=== PATIENT | female | born 1980 | race Caucasian/White ===

== ENCOUNTER 2016-07-24 07:01 | Emergency (ER) | payer MEDICARE, MEDICAID ==
[~2016-07-24] VITALS: Ht 162.6 cm; Wt 81.6 kg
[~2016-07-24 07:01] MED LIST: AGM875T PO; ALPR.5T PO; ALPR1T PO; BSP5T PO; CITA40TA19 PO; DEXL60CA PO; DOXE10CA PO; DOXE25CA2 PO; FAMO40TA6 PO; HYDR-2889 PO; HYDR1CAP2 PO; LNS30CCR; NAPR-243 PO; NAPR220T76 PO; OMEP20CA12 PO; ONDA-42 PO; ONDA4TAB11 PO; ONDA8TAB6 PO; ORPH100T PO; PREN1TAB49 PO; PROM12.59 PO; PROM25SU10 RC; RISP0.5T2 PO; RISP1TAB2 PO; RNT150T PO; SCR1T1 PO; TRAM50TA2 PO; TRM50T PO; [UNRECOGNIZED DRUG - CODE]
[2016-07-24] MEDS: ONDANSETRON 4 MG/2 ML (SDV) Z0FRAN IVP ONE ×2 (07:50→10:12)
[2016-07-24] MEDS: NS IV 1000 ML 1,000 ML IV SCH ×2 (07:55→10:12)
[2016-07-24] MEDS ORDERED: ESOM40CA52 PO (08:19)
[2016-07-24] MEDS ORDERED: RISP2TAB3 PO (08:19)
[2016-07-24] MEDS ORDERED: TRAZ150T72 PO (08:19)
[2016-07-24] MEDS ORDERED: DESV100T PO (08:19)
[2016-07-24 08:25] LABS: BASOPHILS % (AUTO) 0 % (0-10); EOSINOPHILS % (AUTO) 0 % (0-10); LYMPHOCYTES % (AUTO) 9 % (12-44); MEAN CORPUSCULAR HEMOGLOBIN 31 PG (25-34); MEAN CORPUSCULAR HGB CONC 35 G/DL (32-36); MEAN CORPUSCULAR VOLUME 88 FL (80-99); MEAN PLATELET VOLUME 10.1 FL (7.4-10.4); MONOCYTES # (AUTO) 0.2 X 10^3 (0.0-1.0); MONOCYTES % (AUTO) 2 % (0-12); NEUTROPHILS # (AUTO) 9.5 X 10^3 (1.8-7.8); NEUTROPHILS % (AUTO) 89 % (42-75); PLATELET COUNT 344 10^3/uL (130-400); RED CELL DISTRIBUTION WIDTH 12.7 % (10.0-14.5); WHITE BLOOD COUNT 10.8 10^3/uL (4.3-11.0)
[2016-07-24 08:42] LABS: ALANINE AMINOTRANSFERASE 17 U/L (0-55); ALBUMIN 4.6 G/DL (3.2-4.5); ANION GAP 14 MMOL/L (5-14); ASPARTATE AMINO TRANSFERASE 16 U/L (5-34); BILIRUBIN,TOTAL 0.8 MG/DL (0.1-1.0); BLOOD UREA NITROGEN 14 MG/DL (7-18); BUN/CREATININE RATIO 17; CARBON DIOXIDE 22 MMOL/L (21-32); CHLORIDE 105 MMOL/L (98-107); CREATININE SERUM 0.81 MG/DL (0.60-1.30); GFR ESTIMATED > 60; GLUCOSE 137 MG/DL (70-105); POTASSIUM 3.7 MMOL/L (3.6-5.0); SODIUM 141 MMOL/L (135-145)
[2016-07-24 09:22] LABS: BAND NEUTROPHILS 0 %; BASOPHILS % (MANUAL) 0 %; EOSINOPHILS % (MANUAL) 0 %; LYMPHOCYTES % (MANUAL) 12 %; NEUTROPHILS % (MANUAL) 88 %
--- NOTE | 2016-07-24 09:29 | ED GI ---
General Chief Complaint: Abdominal/GI Problems Stated Complaint: NAUSEA AND VOMITING Nursing Triage Note: Pt c/o abd pain, n/v starting last night after eating a cinnamon roll and proceeded through the night, unable to hold things down. reports having chronic lower back pain that has worsened over the last few days. pt dry heaving multiple times since arrival. reports having constipation for greater than one week, which is his "normal" Sepsis Screen: No Definite Risk Source of Information: Patient, Family Exam Limitations: No Limitations History of Present Illness Time Seen By Provider: 09:24 Initial Comments The patient is a 36-year-old white female who presents with complaints of nausea and vomiting. This apparently began last evening after eating a cinnamon roll. She reports a burning sensation in her epigastrium. There has been no diarrhea. She has felt as if she were chilling but there is no known fever. No one else at home is ill. 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 There has been no blood in the vomitus. Timing/Duration: 12-24 Hours Severity/Quality: Moderate Location: Epigastric Radiation: No Radiation Activities at Onset: None Modifying Factors: Improves With Eating Associated Symptoms: Denies Symptoms Allergies and Home Medications Allergies Coded Allergies: No Known Drug Allergies (Unverified , 11/20/09) Home Medications Desvenlafaxine Succinate 100 Mg Tab.er.24h, 100 MG PO DAILY, #30 (Reported) Esomeprazole Magnesium 40 Mg Capsule.dr, 40 MG PO DAILY, #90 (Reported) Risperidone 2 Mg Tablet, 2 MG PO HS, #30 (Reported) Trazodone HCl 150 Mg Tablet, 150 MG PO HS, #30 (Reported) Review of Systems Constitutional: see HPI EENTM: No Symptoms Reported Respiratory: No Symptoms Reported Cardiovascular: No Symptoms Reported Gastrointestinal: Abdominal Pain, Nausea, Vomiting Genitourinary: No Symptoms Reported Musculoskeletal: no symptoms reported Skin: no symptoms reported Psychiatric/Neurological: Other Endocrine: No Symptoms Reported Hematologic/Lymphatic: No Symptoms Reported Past Fzahrvd-Vxlpti-Ptmgta Hx Patient Social History Alcohol Use: Denies Use Recreational Drug Use: Yes Drug of Choice: marijuana Smoking Status: Current Everyday Smoker 2nd Hand Smoke Exposure: Yes Recent Foreign Travel: No Contact w/Someone Who Travel: No Recent Infectious Disease Expo: No Recent Hopitalizations: No Immunizations Up To Date Date of Influenza Vaccine: Dec 12, 2010 Seasonal Allergies Seasonal Allergies: No Surgeries HX Surgeries: Yes (TENDONS STRETCHED OUT. ) Surgeries: Gallbladder Respiratory Hx Respiratory Disorders: No Cardiovascular Hx Cardiac Disorders: No Neurological Hx Neurological Disorders: Yes Neurological Disorders: Stroke Reproductive System : No Hx Reproductive Disorders: No Genitourinary Hx Genitourinary Disorders: No Gastrointestinal Hx Gastrointestinal Disorders: No Musculoskeletal Hx Musculoskeletal Disorders: Yes (RIGHT SIDE WEAKNESS.) Musculoskeletal Disorders: Contracture Endocrine Hx Endocrine Disorders: No HEENT HX ENT Disorders: Yes (HAS NO TEETH--DENTURES AT HOME.) Psychosocial Hx Psychiatric Problems: Yes (Bipolar ) Behavioral Health Disorders: Bipolar Blood Transfusions Hx Blood Disorders: No Physical Exam Vital Signs VS - Last 72 Hours, by Label 07/24/16 07:41 Temp 96.7 Pulse 64 Resp 20 B/P (MAP) 104/76 O2 Delivery Room Air Capillary Refill : Less Than 3 Seconds General Appearance: other (anxious) HEENT: normal ENT inspection Neck: full range of motion Respiratory: chest non-tender, lungs clear, normal breath sounds, no respiratory distress, no accessory muscle use Cardiovascular: normal peripheral pulses, regular rate, rhythm, no edema, no gallop, no JVD, no murmur Gastrointestinal: abnormal bowel sounds (decreased) Extremities: other (there is atrophy of the right hand and contracturing at the wrist and elbow) Back: no CVA tenderness Neurologic/Psychiatric: other (appears to be a degree of facial nerve paralysis on the right) Skin: normal color, warm/dry Lymphatic: no adenopathy Progress/Results/Core Measures Results/Orders Lab Results Laboratory Tests Test 07/24/16 08:17 07/24/16 10:50 Range/Units White Blood Count 10.8 4.3-11.0 10^3/uL Red Blood Count 5.10 4.35-5.85 10^6/uL Hemoglobin 15.6 11.5-16.0 G/DL Hematocrit 45 35-52 % Mean Corpuscular Volume 88 80-99 FL Mean Corpuscular Hemoglobin 31 25-34 PG Mean Corpuscular Hemoglobin Concent 35 32-36 G/DL Red Cell Distribution Width 12.7 10.0-14.5 % Platelet Count 344 130-400 10^3/uL Mean Platelet Volume 10.1 7.4-10.4 FL Neutrophils (%) (Auto) 89 H 42-75 % Lymphocytes (%) (Auto) 9 L 12-44 % Monocytes (%) (Auto) 2 0-12 % Eosinophils (%) (Auto) 0 0-10 % Basophils (%) (Auto) 0 0-10 % Neutrophils # (Auto) 9.5 H 1.8-7.8 X 10^3 Lymphocytes # (Auto) 1.0 1.0-4.0 X 10^3 Monocytes # (Auto) 0.2 0.0-1.0 X 10^3 Eosinophils # (Auto) 0.0 0.0-0.3 10^3/uL Basophils # (Auto) 0.0 0.0-0.1 10^3/uL Neutrophils % (Manual) 88 % Lymphocytes % (Manual) 12 % Monocytes % (Manual) 0 % Eosinophils % (Manual) 0 % Basophils % (Manual) 0 % Band Neutrophils 0 % Blood Morphology Comment NORMAL Sodium Level 141 135-145 MMOL/L Potassium Level 3.7 3.6-5.0 MMOL/L Chloride Level 105 98-107 MMOL/L Carbon Dioxide Level 22 21-32 MMOL/L Anion Gap 14 5-14 MMOL/L Blood Urea Nitrogen 14 7-18 MG/DL Creatinine 0.81 0.60-1.30 MG/DL Estimat Glomerular Filtration Rate > 60 BUN/Creatinine Ratio 17 Glucose Level 137 H 70-105 MG/DL Calcium Level 10.0 8.5-10.1 MG/DL Total Bilirubin 0.8 0.1-1.0 MG/DL Aspartate Amino Transf (AST/SGOT) 16 5-34 U/L Alanine Aminotransferase (ALT/SGPT) 17 0-55 U/L Alkaline Phosphatase 87 40-136 U/L Total Protein 8.0 6.4-8.2 G/DL Albumin 4.6 H 3.2-4.5 G/DL Urine Color YELLOW Urine Clarity CLEAR Urine pH 6 5-9 Urine Specific [place] 1.025 H 1.016-1.022 Urine Protein 2+ H NEGATIVE Urine Glucose (UA) NEGATIVE NEGATIVE Urine Ketones 2+ H NEGATIVE Urine Nitrite NEGATIVE NEGATIVE Urine Bilirubin 1+ H NEGATIVE Urine Urobilinogen 4 H NORMAL MG/DL Urine Leukocyte Esterase 1+ H NEGATIVE Urine RBC (Auto) 3+ H NEGATIVE Urine RBC 0-2 /HPF Urine WBC 0-2 /HPF Urine Squamous Epithelial Cells 5-10 /HPF Urine Crystals NONE /LPF Urine Bacteria MODERATE H /HPF Urine Casts NONE /LPF Urine Mucus NEGATIVE /LPF Urine Culture Indicated NO Urine Test NEGATIVE NEGATIVE My Orders Orders - GABRIEL SYLVESTER MD Cbc With Automated Diff (07/24/16 07:12) Comprehensive Metabolic Panel (07/24/16 07:12) Hcg,Qualitative Urine (07/24/16 07:12) Ua Culture If Indicated (07/24/16 07:12) Ondansetron Injection (Zofran Injectio (07/24/16 07:45) Ns Iv 1000 Ml (Sodium Chloride 0.9%) (07/24/16 07:45) Manual Differential (07/24/16 08:17) Ns Iv 1000 Ml (Sodium Chloride 0.9%) (07/24/16 09:30) Ondansetron Injection (Zofran Injectio (07/24/16 10:15) Ondansetron Injection (Zofran Injectio (07/24/16 10:03) Ct Abdomen/Pelvis Wo (07/24/16 10:10) Medications Given in ED Current Medications Medications Dose Ordered Sig/[place] Route Start Time Stop Time Status Last Admin Dose Admin Ondansetron HCl 8 mg ONCE ONCE IVP 07/24/16 07:45 07/24/16 07:46 DC 07/24/16 07:50 8 MG Ondansetron HCl 8 mg ONCE ONCE IVP 07/24/16 10:15 07/24/16 10:16 DC 07/24/16 10:12 8 MG Vital Signs/I&O Vital Sign - Last 12Hours 07/24/16 07:41 Temp 96.7 Pulse 64 Resp 20 B/P (MAP) 104/76 O2 Delivery Room Air Blood Pressure Mean: 85 Departure Communication Progress Notes CT scan shows a hiatal hernia as noted before. No other pathology is identified in the abdomen. Impression Impression: Primary Impression: nausea and vomiting Disposition: 01 HOME, SELF-CARE Condition: Stable/Unchanged Departure-Patient Inst. Decision time for Depature: 11:35 Referrals: NO,LOCAL PHYSICIAN (PCP) Primary Care Physician Add. Discharge Instructions: All discharge instructions reviewed with patient and/or family. Voiced understanding. Take Zofran as needed to control nausea and vomiting Use 7-Up or Gatorade in small amounts frequently to manage hydration while you are ill. This may last 24 hours. Do not attempt to eat until you have gone at least 12 hours without vomiting. Scripts Ondansetron (Zofran Odt) 8 Mg Tab.rapdis 8 MG PO EVERY 4 HOURS, #20 TAB Prov: GABRIEL SYLVESTER MD 07/24/16 GABRIEL SYLVESTER MD Jul 24, 2016 09:29
[2016-07-24] MEDS ORDERED: ONDANSETRON 4 MG/2 ML (SDV) Z0FRAN ONE (10:03)
[2016-07-24 10:59] LABS: KETONES,URINE 2+ (NEGATIVE); LEUKOCYTE ESTERASE ,URINE 1+ (NEGATIVE); NITRITE,URINE NEGATIVE (NEGATIVE); PH,URINE 6 (5-9); PROTEIN,URINE 2+ (NEGATIVE); UROBILINOGEN,URINE 4 MG/DL (NORMAL)
[2016-07-24 11:15] LABS: BILIRUBIN,URINE 1+ (NEGATIVE); WBC,URINE 0-2 /HPF
--- NOTE | 2016-07-24 11:21 | Diagnostic Imaging Report ---
PROCEDURE: CT abdomen and pelvis without contrast. TECHNIQUE: Multiple contiguous axial images were obtained through the abdomen and pelvis without the use of intravenous contrast. INDICATION: Mid abdominal pain Findings: The lung bases appear clear. There is a late subacute fracture with callus formation involving the posterior aspect of the left 10th rib. There is a small to moderate hiatal hernia. The liver, the spleen, and the pancreas and adrenal glands appear unremarkable for unenhanced exam. There are cholecystectomy clips seen. The kidneys demonstrate no hydronephrosis and no stones. Pelvic calcifications are likely phleboliths with no ureteric or bladder stones identified. There is a indeterminate 9 mm lesion in the posterior aspect of the mid left kidney. This appears more hypodense on 2015 exam with similar size. This is perhaps related to proteinaceous content or hemorrhage and a small cyst. There is no bowel obstruction. Small to moderate amounts of fecal material seen in the colon. The appendix is not clearly seen. No significant free fluid or fluid collection in the abdomen or pelvis. The uterus and adnexa appear grossly unremarkable. Abdominal aorta is normal in caliber. No para-aortic significantly enlarged lymph node is seen. IMPRESSION: 1. No urinary tract stones or hydronephrosis. Previously seen subcentimeter lesion in the posterior aspect of the left kidney has slightly higher density at this time, which may relate to a complicated cyst. Followup renal ultrasound could be considered. 2. Small to moderate hiatal hernia. Dictated by: Dictated on workstation # [id number]
[2016-07-24] MEDS ORDERED: ONDA8TAB9 PO (11:37)
[2016-07-24 11:51] VITALS: BP 121/87
== END 2016-07-24 11:51 | disposition home or self-care (01) ==
LOC: EDUNIT# 07:01 → ER 07:03
DX: R11.2 Nausea with vomiting, unspecified (principal); K44.9 Diaphragmatic hernia without obstruction or gangrene; N28.9 Disorder of kidney and ureter, unspecified; F17.210 Nicotine dependence, cigarettes, uncomplicated
CPT/HCPCS: 36415; 74176; 80053; 81000; 84703; 85007; 85027; 99282

== ENCOUNTER 2017-05-25 11:24 | Emergency (ER) | payer MEDICARE, MEDICAID ==
[~2017-05-25] VITALS: Ht 160 cm; Wt 90.7 kg
[~2017-05-25 11:24] MED LIST changes: +DESV100T PO; +DESV100T16 PO; +ESOM40CA52 PO; +NF-ESOM40C PO; +ONDA8TAB9 PO; +RISP2TAB3 PO; +TRAZ-28 PO; +TRAZ150T72 PO
--- OUTSIDE RECORDS SUMMARY | 2017-05-25 11:32 | XMS REPORT ---
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 Active Problem Bipolar disorder, unspecified F31.9 Active 87501588 Problem Tobacco abuse Z72.0 Active 04885891 Problem Gastroesophageal reflux disease without esophagitis K21.9 Active 048071657 Problem Cannabis dependence, uncomplicated F12.20 Active 37835259 Problem Tobacco abuse counseling Z71.6 Active 764544411 ALLERGIES Substance Reaction Event Type Date Status Cipro vomiting Drug Allergy Aug, Active ENCOUNTERS Encounter Location Date Diagnosis [facility] [id number] [place] [address] 61666- 7199 June, [facility] [id number] [place] [address] 30814- 4152 May, [facility] [address] [place] [address] May, [facility] [address] [place] [address] Apr, Methamphetamine use disorder, severe, 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 and Cannabis dependence , uncomplicated F12.20 [facility] [id number] [place] [address] 22724- 4003 Apr, [facility] [id number] [place] [address] 19693- 6141 Apr, [facility] [address] [place] [address] Apr, Cannabis dependence, uncomplicated F12.20 and Methamphetamine use disorder, severe, 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 [facility] [address] [place] [id number] [place], [place] [address] 20 Apr, 2017 [facility] [id number] [place] [id number] 19 Apr, 2017 [facility] [address] [place] [address] 16 Apr, 2017 Methamphetamine use disorder, severe, 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 and Cannabis dependence , uncomplicated F12.[address] [address] 13 Apr, 2017 [facility] [address] [place] [id number] 13 Apr, 2017 Methamphetamine use disorder, severe, 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 and Cannabis dependence , uncomplicated F12.[address] [address] 07 Apr, 2017 [facility] [address] [place] [address] 06 Apr, 2017 [facility] [address] [place] [id number] [place] [address]23- 9749 12 Mar, 2017 [facility] [address] [place] [address] 07 Mar, 2017 Cannabis dependence, uncomplicated F12.20 and Methamphetamine use disorder, severe, 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 [facility] [address] [place] [address] Mar, [facility] [address] [place] [address] Mar, [facility] [address] [place] [address] Feb, Cannabis dependence, uncomplicated F12.20 and Methamphetamine use disorder, severe, 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 [facility] [address] [place] [address] Feb, [facility] [address] [place] [address] Feb, Cannabis dependence, uncomplicated F12.20 and Methamphetamine use disorder, severe, 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 [facility] [id number] [place] [address] Feb, Acute nasopharyngitis J00 [facility] [address] [place] [address] Feb, [facility] [address] [place] [address] Feb, [facility] [address] [place] [address] Feb, [facility] [address] [place] [address] Feb, Methamphetamine use disorder, severe, 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 and Cannabis dependence , uncomplicated F12.20 [facility] [address] [address] Feb, [facility] [address] [place] [address] Feb, [facility] [address] [place] [address] Feb, [facility] [address] [place] [address] Feb, Cannabis dependence, uncomplicated F12.20 and Methamphetamine use disorder, severe, 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 [facility] [address] [place] [address] Jan, Methamphetamine use disorder, severe, 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 and Cannabis dependence , uncomplicated F12.20 [facility] [address] [place] [id number] [place] [address] 38441- 9400 Jan, [facility] [address] [place] [address] Jan, Methamphetamine use disorder, severe, 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 and Cannabis dependence , uncomplicated F12.20 [facility] [id number] [place] [address] 73450- 6912 Jan, [facility] [address] [place] [address]64- 7199 Jan, [facility] [address] [place] [address] Dec, Methamphetamine use disorder, severe, 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 and Cannabis dependence , uncomplicated F12.20 [facility] [address] [place] [address] [address] Dec, [facility] [address] [place] [address] Dec, Methamphetamine use disorder, severe, 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 and Cannabis dependence , uncomplicated F12.20 [facility] [address] [id number] 17 Dec, 2016 Methamphetamine use disorder, severe, 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 and Cannabis dependence , uncomplicated F12.20 [facility] [address] [place] [address] 13 Dec, 2016 Methamphetamine use disorder, severe, 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 and Cannabis dependence , uncomplicated F12.20 [facility] [address] [place] [address] 08 Dec, 2016 [facility] [address] [place] [address] 06 Dec, 2016 Cannabis dependence F12.20 and Methamphetamine use disorder, severe, 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 [facility] [address] [place] [address] Dec, [facility] [address] [address] Dec, [facility] [address] [address]134- 6275 Dec, [facility] [address] 27[address]- 56[address] Dec, [facility] [address] [place] [address] Nov, [facility] [address] [place] [address] Nov, [facility] [id number] [place] [address] 88858- 2544 Nov, [facility] [address] [address] Nov, [facility] [address] 32833- 2547 Nov, [facility] [address] [place] [address] Nov, Cannabis dependence, uncomplicated F12.20 and Methamphetamine use disorder, severe, 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 [facility] [id number] [place] [address] 79197- 4736 Nov, [facility] [id number] [place] [address] 25229 2546 Nov, [facility] [address] [place] [address] Nov, [facility] [address] [place] [address] Nov, Cannabis dependence, uncomplicated F12.20 and Methamphetamine use disorder, severe, 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 [facility] [address] [place] [address] Nov, Cannabis dependence, uncomplicated F12.20 [facility] [address] 50882- 4744 Nov, [facility] [address] [place] [address] 28 Oct, 2016 Cannabis dependence, uncomplicated F12.20 [facility] [id number] [place] [address] 46263 2546 27 Oct, 2016 [facility] [address] [place] [address] 17943 2546 27 Oct, 2016 [facility] [address] [place] [address] 25 Oct, 2016 [facility] [address] [place] [address] 05 Oct, 2016 Cannabis dependence, uncomplicated F12.20 [facility] [address] [place] [address] Sep, [facility] [address] [place] [address] Sep, Cannabis dependence, uncomplicated F12.20 [facility] [address] [place] [address] Sep, [facility] [address] [place] [address] Sep, Cannabis dependence, uncomplicated F12.20 and Methamphetamine dependence in remission F15.21 [facility] [address] [place] [id number] [place] [address] 17351- 4251 Sep, Bipolar disorder, unspecified F31.9 and Cannabis dependence F12.20 [facility] [id number] [place] [address] 20706- 7411 17 Sep, 2016 [facility] [address] [place] [address] Sep, [facility] [address] [place] [address] Sep, [facility] [address] [place] [address] Sep, [facility] [id number] [place] [address] 94465- 6629 Sep, [facility] [address] [place] [address] Sep, Cannabis dependence, uncomplicated F12.20 and Methamphetamine dependence in remission F15.21 [facility] [id number] [place] [address] 28747- 2272 Aug, Bipolar disorder, unspecified F31.9 and Gastroesophageal reflux disease without esophagitis K21.9 [facility] [id number] [place] [address] 81818- 4543 Aug, Bipolar disorder, unspecified F31.9 and Cannabis dependence F12.20 [facility] [id number] [place] [address] 74949- 5706 Jul, [facility] [address] [place] [address] Jul, Cannabis dependence, uncomplicated F12.20 and Methamphetamine dependence in remission F15.21 [facility] [id number] [place] [address] 52141- 3320 Jul, [facility] [address] [place] [address] Jul, Cannabis dependence, uncomplicated F12.20 and Methamphetamine dependence in remission F15.21 [facility] [id number] [place] [address] 20845- 1132 Jul, [facility] [id number] [place] [address] 95815- 6183 June, [facility] [address] [place] [address]- 4772 June, [facility] [address] [place] [address] June, [facility] [address] [place] [address] June, Cannabis dependence, uncomplicated F12.20 and Methamphetamine dependence in remission F15.21 [address] [address] 635[address]- 2307 June, Cannabis dependence, uncomplicated F12.20 ; Methamphetamine use disorder, severe, 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 and History of substance abuse Z87.898 [place] [address] 00303- 6643 May, Gastroesophageal reflux disease without esophagitis K21.9 [place] [address] 13209- 9724 10 Mar, 2016 Encounter for test, result unknown Z32.00 [address] [address] 08794- 8618 10 Feb, 2016 Gastroesophageal reflux disease without esophagitis K21.9 and Tobacco abuse Z72.0 [place] [address] 75757- 8300 Dec, [address] [address] 38152- 4444 10 Jun, 2015 Routine health maintenance Z00.00 ; Gastroesophageal reflux disease without esophagitis K21.9 ; Tobacco abuse Z72.0 ; Tobacco abuse counseling Z71.6 ; History of substance abuse Z87.898 ; Kidney lesion N28.9 ; CVA, old, 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 ; Atrophy of muscle of right forearm M62.531 and Atrophy of muscle of right lower leg M62.561 [place] [address] 06454- 0823 May, test negative Z32.[address] 40283- 0447 Aug, Chigger bites 133.8 ; Itching 698.9 and Skin infection 686.9 [facility] [address] [address] June, Follow-up examination V67.9 and Nausea and vomiting 787.01 [facility] [address] [address] 6[address] May, [facility] [id number] [place] [address] 13352- 8361 May, [facility] [id number] [place] [address] 82735- 4503 Feb, [facility] [id number] [place] [address] 72665- 4642 Feb, [facility] [id number] [place] [address] 19900- 4691 Feb, [facility] [id number] [place] [address] 06770- 0574 Feb, [facility] [address] [address] 2914 Mar, [facility] [id number] [place] [address] 90745- 4037 Feb, [facility] [address] [address] 277[address] Jan, [facility] [address] [address] 4[address] Jan, [facility] [address] [address]- 5699 Dec, [facility] [id number] [place] [address] 69986- 6109 Dec, [facility] [address] [address]- 1611 Dec, [facility] [id number] [place] [address]- 4212 18 Dec, 2010 [facility] [address] [id number] [place] [address]- 7866 15 Dec, 2010 [facility] [place] [facility] [address] [id number] [place]- 1036 Dec, [facility] [place] [facility] [address] [facility] [id number] [place] [address]- 6616 Dec, [facility] [place] [facility] [address] [id number] [place] [address] 2545 Dec, [facility] [place] [facility] [address] [id number] [place] [address] Nov, [facility] [place] [facility] [address] [id number] [place] [address]- 0518 Nov, [facility] [place] [facility] [address] [facility] [id number] [place] [address] Nov, [facility] [place] [facility] [address] [id number] [place] [address]- 5582 Nov, [facility] [place] [facility] [address] [facility] [id number] [place] [address]- 6883 Nov, [facility] [place] [facility] [address] [facility] [id number] [address]- 4949 Nov, [facility] [place] [facility] [address] [facility] [id number] 6[address] Nov, [facility] [place] [facility] [address] [facility] [id number] [address]24 Nov, [facility] [place] [facility] [address] [facility] [id number] [address]- 3385 Nov, [facility] [place] [facility] [address] [facility] [id number] [place] [address]13 Oct, [facility] [place] [facility] [address] [facility] [id number] [place] [address] 1380 Sep, IMMUNIZATIONS No Known Immunizations SOCIAL HISTORY Never Assessed REASON FOR VISIT Gerd / patient states she is here to follow up om medications -- corby worthy PLAN OF CARE Activity Details Follow Up 3 Months Reason:[facility] VITAL SIGNS Height 64 in 2016-08-28 Weight 183.0 lbs 2016-08-28 Temperature 97.0 degrees Fahrenheit 2016-08-28 Heart Rate 70 bpm 2016-08-28 Respiratory Rate 18 2016-08-28 BMI 31.41 kg/m2 2016-08-28 Blood pressure systolic 120 mmHg 2016-08-28 Blood pressure diastolic 78 mmHg 2016-08-28 MEDICATIONS Medication Instructions Dosage Frequency Start Date End Date Duration Status Trazodone HCl 50 mg Orally Once a day 1 tablet at bedtime as needed 24h 30 days Active Nexium 40 mg Orally Once a day 1 capsule 24h 90 days Active Risperdal 2 MG Orally Once a day 1 tablet 24h 30 days Active Pristiq 100 mg Orally Once a day 1 tablet 24h 30 days Active RESULTS No Results PROCEDURES Procedure Date Ordered Result Body Site [facility] VISIT ESTABLISHED PATIENT August 28, 2016 [facility] Visit needs to be added with another visit on the same day August 28, 2016 INSTRUCTIONS MEDICATIONS ADMINISTERED No Known Medications MEDICAL (GENERAL) HISTORY Type Description Date Medical History stroke syndrome at 18 months old Medical History psychiatric disorders depression Medical History bipolar Medical History anxiety Surgical History orthopeadic surgery rt leg tendon repair Surgical History gallbladder removal Surgical History metal plate rt hand post stroke
--- OUTSIDE RECORDS SUMMARY | 2017-05-25 11:33 | XMS REPORT | Continuity of Care Document ---
Demographics Address [address] [address] x Preferred Language Unknown Marital Status Unknown Sikh Affiliation Unknown Race Unknown Ethnic Group Unknown Author Author Formerly [facility] Address Unknown Phone Unavailable Allergies Active Description Code Type Severity Reaction Onset Reported/Identified Relationship to Patient Clinical Status Yes No Known Drug Allergies [id number] Drug Allergy Unknown N/A 11/20/2009 Yes Cipro 500 mg tablet Drug Allergy N/A N/A 06/07/2014 Medications There is no data. Problems Date Dx Coded Attending Type Code Diagnosis Diagnosed By 11/20/2009 Ot 787.03 11/20/2009 Ot 787.91 11/20/2009 Ot 789.09 11/20/2009 Ot 791.9 11/28/2009 Ot 079.99 11/28/2009 Ot 558.9 11/28/2009 Ot 789.06 11/29/2009 Ot 787.03 11/29/2009 Ot 789.09 12/02/2009 Ot 296.80 12/02/2009 Ot 305.1 12/02/2009 Ot 438.20 12/02/2009 Ot 787.01 12/02/2009 Ot 787.91 12/02/2009 Ot 789.09 12/02/2009 Ot V58.69 07/19/2010 Ot 787.01 07/19/2010 Ot 787.91 07/19/2010 Ot 791.9 07/25/2010 Ot 276.51 07/25/2010 Ot 276.8 07/25/2010 Ot 305.1 07/25/2010 Ot 558.9 08/04/2010 Ot V67.9 08/05/2010 Ot 530.81 08/05/2010 Ot 789.06 08/10/2010 Ot 276.52 08/10/2010 Ot 276.8 08/10/2010 Ot 296.80 08/10/2010 Ot 438.30 08/10/2010 Ot 530.81 08/10/2010 Ot 599.0 08/10/2010 Ot 643.13 08/10/2010 Ot 646.63 08/10/2010 Ot 648.43 08/10/2010 Ot 648.93 08/10/2010 Ot 649.03 08/10/2010 Ot 737.30 08/14/2010 GUEVARA GO DO K 305.1 NONDEPENDENT TOBACCO USE DISORDER 08/14/2010 GUEVARA GO DO K 724.4 BACK PAIN WITH RADIATION 08/14/2010 GUEVARA GO DO K 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 08/14/2010 GUEVARA GO DO K V23.9 , HIGH-RISK (UNSPEC) 08/14/2010 TANIKA MATOS APRNCY N 305.1 NONDEPENDENT TOBACCO USE DISORDER 08/14/2010 IDA EVANGELISTA APRNTANIKACY N 724.4 BACK PAIN WITH RADIATION 08/14/2010 IDA EVANGELISTA APRNTANIKACY N 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 08/14/2010 IDA EVANGELISTA APRNTANIKACY N V23.9 , HIGH-RISK (UNSPEC) 08/14/2010 HUSAM LYNNE APRNIA R 305.1 NONDEPENDENT TOBACCO USE DISORDER 08/14/2010 TAYE LYNNE APRNRICIA R 724.4 BACK PAIN WITH RADIATION 08/14/2010 MAGED WOLF JOSE R 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 08/14/2010 TAYE LYNNE APRNRICIA R V23.9 , HIGH-RISK (UNSPEC) 08/14/2010 TAYE LYNNE APRNRICIA R 305.1 NONDEPENDENT TOBACCO USE DISORDER 08/14/2010 TAYE LYNNE APRNRICIA R 724.4 BACK PAIN WITH RADIATION 08/14/2010 TAYE LYNNE APRNRICIA R 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 08/14/2010 TAYE LYNNE APRNRICIA R V23.9 , HIGH-RISK (UNSPEC) 09/12/2010 Ot 041.04 09/12/2010 Ot 276.8 09/12/2010 Ot 305.20 09/12/2010 Ot 599.0 09/12/2010 Ot 643.93 09/12/2010 Ot 646.63 09/12/2010 Ot 648.43 09/12/2010 Ot 649.03 09/24/2010 Ot 643.03 09/25/2010 ABBI DOMIGUELINAA K 305.91 NONDEPENDENT OTHER MIXED OR UNSPECIFIED DRUG ABUSE CONTINUOUS USE 09/25/2010 MIGUELINA GO DOA K 643.13 Hyperemesis Gravidarum With Metabolic Disturbance Antepartum 09/25/2010 GO DOMIGUELINAA K 655.70 Compl Of - Decreased Movements 09/25/2010 GUEVARA GO DO K 783.21 Loss Of Weight 09/25/2010 IDA EVANGELISTA APRNAKUA N 305.91 NONDEPENDENT OTHER MIXED OR UNSPECIFIED DRUG ABUSE CONTINUOUS USE 09/25/2010 IDA EVANGELISTA APREphraim AKUA N 643.13 Hyperemesis Gravidarum With Metabolic Disturbance Antepartum 09/25/2010 IDA MADARLIN PUDDLER PILE DRIVING, AKUA N 655.70 Compl Of - Decreased Movements 09/25/2010 IDA EVANGELISTA APREphraim AKUA N 783.21 Loss Of Weight 09/25/2010 TAYE LYNNE APRNRICIA R 305.91 NONDEPENDENT OTHER MIXED OR UNSPECIFIED DRUG ABUSE CONTINUOUS USE 09/25/2010 TAYE LYNNE APRNRICIA R 643.13 Hyperemesis Gravidarum With Metabolic Disturbance Antepartum 09/25/2010 TAYE LYNNE APRNRICIA R 655.70 Compl Of - Decreased Movements 09/25/2010 TAYE LYNNE APRNRICIA R 783.21 Loss Of Weight 09/25/2010 MAGED WOLF JOSE R 305.91 NONDEPENDENT OTHER MIXED OR UNSPECIFIED DRUG ABUSE CONTINUOUS USE 09/25/2010 TAYE LYNNE APRNRICIA R 643.13 Hyperemesis Gravidarum With Metabolic Disturbance Antepartum 09/25/2010 MAGED WOLF JOSE R 655.70 Compl Of - Decreased Movements 09/25/2010 TAYE LYNNE APRNRICIA R 783.21 Loss Of Weight 09/25/2010 Ot 305.20 09/25/2010 Ot 338.29 09/25/2010 Ot 599.0 09/25/2010 Ot 643.13 09/25/2010 Ot 646.63 09/25/2010 Ot 648.43 09/25/2010 Ot 649.03 09/25/2010 Ot V23.7 10/09/2010 GUEVARA GO DO K 646.60 Compl Of - Uti 10/09/2010 MIGUELINA GO DOA K 648.30 COMPL OF - DRUG DEPENDENCE 10/09/2010 GUEVARA GO DO K 649.00 COMPL OF - TOBACCO USE 10/09/2010 GO MIGUELINA PHILLIPSA K V23.7 , HIGH RISK W/ INSUFFICIENT CARE 10/09/2010 PRIETO CASHDARLIN PUDDLER PILE DRIVINGAKUA Ye N 646.60 Compl Of - Uti 10/09/2010 PRIETO CASHERO PUDDLER PILE DRIVINGTANIKA YeCY N 648.30 COMPL OF - DRUG DEPENDENCE 10/09/2010 PRIETO CASHERO PUDDLER PILE DRIVINGTANIKA YeCY N 649.00 COMPL OF - TOBACCO USE 10/09/2010 PRIETO AKUA EVANGELISTA APRN N V23.7 , HIGH RISK W/ INSUFFICIENT CARE 10/09/2010 HUSAM LYNNE APRNIA R 646.60 Compl Of - Uti 10/09/2010 TAYE LYNNE APRNRICIA R 648.30 COMPL OF - DRUG DEPENDENCE 10/09/2010 LYNNE LUCIANO JOSE R 649.00 COMPL OF - TOBACCO USE 10/09/2010 LYNNE LUCIANO JOSE R V23.7 , HIGH RISK W/ INSUFFICIENT CARE 10/09/2010 TAYE LYNNE APRNRICIA R 646.60 Compl Of - Uti 10/09/2010 MAGED WOLF JOSE R 648.30 COMPL OF - DRUG DEPENDENCE 10/09/2010 MAGED WOLF JOSE R 649.00 COMPL OF - TOBACCO USE 10/09/2010 TAYE LYNNE APRNRICIA R V23.7 , HIGH RISK W/ INSUFFICIENT CARE 10/30/2010 Ot 643.03 10/30/2010 Ot 787.01 11/07/2010 GUEVARA GO DO K 301.83 PD BORDERLINE 11/07/2010 GUEVARA GO DO K 305.20 Cannabis Abuse 11/07/2010 GUEVARA GO DO K 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 11/07/2010 GUEVARA GO DO K 309.81 AN PTSD 11/07/2010 AKUA MATOS APRN N 301.83 PD BORDERLINE 11/07/2010 PRIETOAKUA BRADEN APRN N 305.20 Cannabis Abuse 11/07/2010 AKUA MATOS APRN N 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 11/07/2010 AKUA MATOS APRN N 309.81 AN PTSD 11/07/2010 MAGED MCLAUGHLINN JOSE R 301.83 PD BORDERLINE 11/07/2010 MAGED MCLAUGHLINN, JOSE R 305.20 Cannabis Abuse 11/07/2010 MAGED MCLAUGHLINN, JOSE R 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 11/07/2010 MAGED MCLAUGHLINN JOSE R 309.81 AN PTSD 11/07/2010 MAGED MCLAUGHLINN, JOSE R 301.83 PD BORDERLINE 11/07/2010 MAGED MCLAUGHLINN, JOSE R 305.20 Cannabis Abuse 11/07/2010 MAGED WOLF JOSE R 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 11/07/2010 MAGED WOLF JOSE R 309.81 AN PTSD 11/07/2010 Ot 276.8 11/07/2010 Ot 296.80 11/07/2010 Ot 305.90 11/07/2010 Ot 530.81 11/07/2010 Ot 599.0 11/07/2010 Ot 643.03 11/07/2010 Ot 646.63 11/07/2010 Ot 648.43 11/07/2010 Ot 648.93 11/07/2010 Ot 649.03 11/07/2010 Ot V15.81 11/07/2010 Ot V23.7 11/08/2010 GUEVARA GO DO K 296.90 MOOD DISORDER 11/08/2010 IDA EVANGELISTA PUDDLER PILE DRIVING, AKUA N 296.90 MOOD DISORDER 11/08/2010 HUSAM LYNNE APRNIA R 296.90 MOOD DISORDER 11/08/2010 HUSAM LYNNE APRNIA R 296.90 MOOD DISORDER 12/09/2010 GO GUEVARA PHILLIPS K 643.13 Hyperemesis Gravidarum With Metabolic Disturbance Antepartum 12/09/2010 AKUA MATOS APRN N 643.13 Hyperemesis Gravidarum With Metabolic Disturbance Antepartum 12/09/2010 TAYE LYNNE APRNRICIA R 643.13 Hyperemesis Gravidarum With Metabolic Disturbance Antepartum 12/09/2010 HUSAM LYNNE APRNIA R 643.13 Hyperemesis Gravidarum With Metabolic Disturbance Antepartum 12/10/2010 Ot 112.1 12/10/2010 Ot 305.20 12/10/2010 Ot 643.23 12/10/2010 Ot 647.83 12/10/2010 Ot 648.43 12/10/2010 Ot 787.1 12/10/2010 Ot 790.6 12/10/2010 Ot 791.9 12/10/2010 Ot V58.69 12/12/2010 GUEVARA GO DO 783.21 Loss Of Weight 12/12/2010 GUEVARA GO DO V04.81 Flu Dx (3 Yrs And Above, Im) 12/12/2010 TANIKA MATOS APRNCY N 783.21 Loss Of Weight 12/12/2010 AKUA MATOS APRN N V04.81 Flu Dx (3 Yrs And Above, Im) 12/12/2010 MAGED WOLF JOSE R 783.21 Loss Of Weight 12/12/2010 MAGED MCLAUGHLINEphraim JOSE R V04.81 Flu Dx (3 Yrs And Above, Im) 12/12/2010 MAGED PUDDLER PILE DRIVING, JOSE R 783.21 Loss Of Weight 12/12/2010 MAGED WOLF JOSE R V04.81 Flu Dx (3 Yrs And Above, Im) 02/10/2011 Ot 305.20 CANNABIS ABUSE-UNSPEC 02/10/2011 Ot 305.40 SEDATIVE, HYPNOTIC OR ANXIOLYTIC ABUSE, 02/10/2011 Ot 305.50 OPIOID ABUSE -UNSPEC 02/10/2011 Ot 305.70 AMPHETAMINE ABUSE-UNSPEC 02/10/2011 Ot 311 DEPRESSIVE DISORDER NEC 02/10/2011 Ot 648.41 MENTAL DISORDER-DELIVER 02/10/2011 Ot 649.01 TOBACCO USE DISORDER COMP PREG/CHILDBIRT 02/10/2011 Ot V27.0 DELIVER- SINGLE LIVEBORN 12/08/2011 Ot 724.5 BACKACHE NOS 12/08/2011 Ot 737.30 IDIOPATHIC SCOLIOSIS 03/08/2012 GUEVARA GO DO 625.3 DYSMENORRHEA 03/08/2012 GUEVARA GO DO 626.2 EXCESSIVE OR FREQUENT MENSTRUATION 03/08/2012 GUEVARA GO DO 787.1 HEARTBURN 03/08/2012 GUEVARA GO DO V25.9 CONTRACEPTION MANAGEMENT 03/08/2012 GUEVARA GO DO V74.5 STD SCREEN 03/08/2012 GO DO, GUEVARA K V76.2 CERVICAL CANCER SCREENING (PAP SMEAR) 03/08/2012 AKUA MATOS APRN N 625.3 DYSMENORRHEA 03/08/2012 AKUA MATOS APRN N 626.2 EXCESSIVE OR FREQUENT MENSTRUATION 03/08/2012 AKUA MATOS APRN N 787.1 HEARTBURN 03/08/2012 AKUA MATOS APRN N V25.9 CONTRACEPTION MANAGEMENT 03/08/2012 TANIKA MATOS APRNCY N V74.5 STD SCREEN 03/08/2012 AKUA MATOS APRN N V76.2 CERVICAL CANCER SCREENING (PAP SMEAR) 03/08/2012 LYNNE PUDDLER PILE DRIVINGHUSAM YeIA R 625.3 DYSMENORRHEA 03/08/2012 MAGED PUDDLER PILE DRIVINGHUSAM YeIA R 626.2 EXCESSIVE OR FREQUENT MENSTRUATION 03/08/2012 LYNNE PUDDLER PILE DRIVINGHUSAM YeIA R 787.1 HEARTBURN 03/08/2012 HUSAM LYNNE APRNIA R V25.9 CONTRACEPTION MANAGEMENT 03/08/2012 HUSAM LYNNE APRNIA R V74.5 STD SCREEN 03/08/2012 LYNNE PUDDLER PILE DRIVINGHUSAM YeIA R V76.2 CERVICAL CANCER SCREENING (PAP SMEAR) 03/08/2012 HUSAM LYNNE APRNIA R 625.3 DYSMENORRHEA 03/08/2012 HUSAM LYNNE APRNIA R 626.2 EXCESSIVE OR FREQUENT MENSTRUATION 03/08/2012 LYNNE PUDDLER PILE DRIVINGHUSAM YeIA R 787.1 HEARTBURN 03/08/2012 HUSAM LYNNE APRNIA R V25.9 CONTRACEPTION MANAGEMENT 03/08/2012 TAYE LYNNE APRNRICIA R V74.5 STD SCREEN 03/08/2012 MAGED PUDDLER PILE DRIVINGTAYE YeJOSE R V76.2 CERVICAL CANCER SCREENING (PAP SMEAR) 09/20/2013 CHARLES CERVANTES MD Ot 305.1 TOBACCO USE DISORDER 09/20/2013 CHARLES CERVANTES MD Ot 787.01 NAUSEA WITH VOMITING 01/26/2014 Ot 780.39 01/26/2014 Ot V28.89 01/26/2014 Ot 648.83 01/26/2014 Ot V28.89 01/26/2014 Ot 724.2 01/26/2014 Ot 780.39 01/26/2014 Ot 648.83 01/26/2014 Ot V28.89 01/26/2014 Ot 724.2 02/21/2014 KATHY SORIA DO Ot 564.00 02/21/2014 GELLENKATHY MEHTA DO Ot 787.03 02/27/2014 GELLENDER KATHY PHILLIPS Ot 564.00 02/27/2014 GELLENKATHY MEHTA DO Ot 787.03 05/30/2014 AKUA MATOS APRN N 530.11 REFLUX ESOPHAGITIS 05/30/2014 TAYE LYNNE APRNRICIA R 530.11 REFLUX ESOPHAGITIS 05/30/2014 MAGED WOLF JOSE R 530.11 REFLUX ESOPHAGITIS 06/07/2014 TAYE LYNNE APRNRICIA R 787.03 VOMITING ALONE 06/07/2014 TAYE LYNNE APRNRICIA R 789.04 ABDOMINAL PAIN LEFT LOWER QUADRANT 06/07/2014 MAGED WOLF JOSE R 789.06 ABDOMINAL PAIN EPIGASTRIC 06/07/2014 TAYE LYNNE APRNRICIA R 787.03 VOMITING ALONE 06/07/2014 MAGED WOLF JOSE R 789.04 ABDOMINAL PAIN LEFT LOWER QUADRANT 06/07/2014 MAGED WOLF JOSE R 789.06 ABDOMINAL PAIN EPIGASTRIC 06/13/2014 Ot 780.39 06/13/2014 Ot V28.89 06/13/2014 Ot 648.83 06/13/2014 Ot V28.89 06/13/2014 Ot 724.2 06/13/2014 KATHY SORIA DO Ot 564.00 06/13/2014 KATHY SORIA DO Ot 787.03 07/14/2014 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 Ot 787.01 07/14/2014 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 Ot 789.09 08/15/2014 JOSE LYNNE R SPREADING MACHINE OPERATOR Ot 787.01 08/15/2014 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 Ot 789.09 03/16/2015 Ot V28.89 03/16/2015 Ot 648.83 03/16/2015 Ot V28.89 03/16/2015 Ot 724.2 03/16/2015 KATHY SORIA DO Ot 564.00 03/16/2015 GELLENDER KATHY PHILLIPS Ot 787.03 03/16/2015 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 Ot 787.01 03/16/2015 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 Ot 789.09 03/16/2015 GABRIEL SYLVESTER MD Ot R05 COUGH 03/16/2015 GABRIEL SYLVESTER MD Ot R11.10 VOMITING, UNSPECIFIED 03/16/2015 GABRIEL SYLVESTER MD Ot Z53.21 PROC/TRTMT NOT CRD OUT D/T PT LV BEF SEE 07/24/2016 Ot 724.2 LUMBAGO 07/24/2016 GELLENDER DO, KATHY A Ot 564.00 UNSPEC CONSTIPATION 07/24/2016 GELLENDER DO, KATHY A Ot 787.03 VOMITING ALONE 07/24/2016 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 Ot 787.01 NAUSEA WITH VOMITING 07/24/2016 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 Ot 789.09 ABDOMINAL PAIN, OTHER SPECIFIED SITE 07/24/2016 GABRIEL SYLVESTER MD Ot F17.210 NICOTINE DEPENDENCE, CIGARETTES, UNCOMPL 07/24/2016 GABRIEL SYLVESTER MD Ot K44.9 DIAPHRAGMATIC HERNIA WITHOUT OBSTRUCTION 07/24/2016 GABRIEL SYLVESTER MD Ot N28.9 DISORDER OF KIDNEY AND URETER, UNSPECIFI 07/24/2016 GABRIEL SYLVESTER MD Ot R11.2 NAUSEA WITH VOMITING, UNSPECIFIED 07/24/2016 Ot 724.2 LUMBAGO 07/24/2016 GELLENDER DO, KATHY A Ot 564.00 UNSPEC CONSTIPATION 07/24/2016 GELLENDER DO, KATHY A Ot 787.03 VOMITING ALONE 07/24/2016 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 Ot 787.01 NAUSEA WITH VOMITING 07/24/2016 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 Ot 789.09 ABDOMINAL PAIN, OTHER SPECIFIED SITE 07/27/2016 GABRIEL SYLVESTER MD Ot F17.210 NICOTINE DEPENDENCE, CIGARETTES, UNCOMPL 07/27/2016 GABRIEL SYLVESTER MD Ot K44.9 DIAPHRAGMATIC HERNIA WITHOUT OBSTRUCTION 07/27/2016 GABRIEL SYLVESTER MD Ot N28.9 DISORDER OF KIDNEY AND URETER, UNSPECIFI 07/27/2016 GABRIEL SYLVESTER MD Ot R11.2 NAUSEA WITH VOMITING, UNSPECIFIED 07/31/2016 GABRIEL SYLVESTER MD Ot F17.210 NICOTINE DEPENDENCE, CIGARETTES, UNCOMPL 07/31/2016 GABRIEL SYLVESTER MD Ot K44.9 DIAPHRAGMATIC HERNIA WITHOUT OBSTRUCTION 07/31/2016 GABRIEL SYLVESTER MD Ot N28.9 DISORDER OF KIDNEY AND URETER, UNSPECIFI 07/31/2016 GABRIEL SYLVESTER MD Ot R11.2 NAUSEA WITH VOMITING, UNSPECIFIED Procedures Code Description Performed By Performed On 73.6 EPISIOTOMY 02/08/2011 71281 THERAPUTIC INJ SQ/IM 03/08/2012 J1055 DEPO-PROVERA INJ 150 MG 03/08/2012 74901 URINE TEST (IN- HOUSE) 03/08/2012 59273 CULTURE UROGENITAL 03/09/2012 39382 GC/CHLAM PROBE ([facility]) 03/10/2012 21109 PAP SMEAR 03/10/2012 Q0091 PAP SMEAR OBTAIN SMEAR 03/10/2012 66412 H PYLORI (IN-HOUSE) 05/30/2014 83405 TEST, URINE (IN- HOUSE) 06/07/[address] ABDOMEN & PELVIS W/ & W/ O CONTRAST 06/07/2014 23553 ROUTINE VENIPUNCTURE 06/09/2014 98111 CBC 06/09/2014 [id number] GFR CALC (RESULT ONLY) 06/09/2014 96412 CMP 06/09/2014 69553 AMYLASE 06/09/2014 17736 LIPASE 06/09/2014 65916 T3 TOTAL 06/09/2014 Results Test Result Range Complete blood count (CBC) with automated white blood cell (WBC) differential - 07/24/16 08:17 Blood leukocytes automated count (number/volume) 10.8 10*3/uL 4.3-11.0 Blood erythrocytes automated count (number/volume) 5.10 10*6/uL 4.35-5.85 Venous blood hemoglobin measurement (mass/volume) 15.6 g/dL 11.5-16.0 Blood hematocrit (volume fraction) 45 % 35-52 Automated erythrocyte mean corpuscular volume 88 [foz_us] 80-99 Automated erythrocyte mean corpuscular hemoglobin (mass per erythrocyte) 31 pg 25-34 Automated erythrocyte mean corpuscular hemoglobin concentration measurement ( mass/volume) 35 g/dL 32-36 Automated erythrocyte distribution width ratio 12.7 % 10.0-14.5 Automated blood platelet count (count/volume) 344 10*3/uL 130-400 Automated blood platelet mean volume measurement 10.1 [foz_us] 7.4-10.4 Automated blood neutrophils/100 leukocytes 89 % 42-75 Automated blood lymphocytes/100 leukocytes 9 % 12-44 Blood monocytes/100 leukocytes 2 % 0-12 Automated blood eosinophils/100 leukocytes 0 % 0-10 Automated blood basophils/100 leukocytes 0 % 0-10 Blood neutrophils automated count (number/volume) 9.5 10*3 1.8-7.8 Blood lymphocytes automated count (number/volume) 1.0 10*3 1.0-4.0 Blood monocytes automated count (number/volume) 0.2 10*3 0.0-1.0 Automated eosinophil count 0.0 10*3/uL 0.0-0.3 Automated blood basophil count (count/volume) 0.0 10*3/uL 0.0-0.1 Comprehensive metabolic panel - 07/24/16 08:17 Serum or plasma sodium measurement (moles/volume) 141 mmol/L 135-145 Serum or plasma potassium measurement (moles/volume) 3.7 mmol/L 3.6-5.0 Serum or plasma chloride measurement (moles/volume) 105 mmol/L 98-107 Carbon dioxide 22 mmol/L 21-32 Serum or plasma anion gap determination (moles/volume) 14 mmol/L 5-14 Serum or plasma urea nitrogen measurement (mass/volume) 14 mg/dL 7-18 Serum or plasma creatinine measurement (mass/volume) 0.81 mg/dL 0.60-1.30 Serum or plasma urea nitrogen/creatinine mass ratio 17 NRG Serum or plasma creatinine measurement with calculation of estimated glomerular filtration rate > NRG Serum or plasma glucose measurement (mass/volume) 137 mg/dL 70-105 Serum or plasma calcium measurement (mass/volume) 10.0 mg/dL 8.5-10.1 Serum or plasma total bilirubin measurement (mass/volume) 0.8 mg/dL 0.1-1.0 Serum or plasma alkaline phosphatase measurement (enzymatic activity/volume) 87 U/L 40-136 Serum or plasma aspartate aminotransferase measurement (enzymatic activity/ volume) 16 U/L 5-34 Serum or plasma alanine aminotransferase measurement (enzymatic activity/volume ) 17 U/L 0-55 Serum or plasma protein measurement (mass/volume) 8.0 g/dL 6.4-8.2 Serum or plasma albumin measurement (mass/volume) 4.6 g/dL 3.2-4.5 Blood manual differential performed detection - 07/24/16 08:17 Blood monocytes/100 leukocytes 0 % NRG Manual blood segmented neutrophils/100 leukocytes 88 % NRG Blood band neutrophils/100 leukocytes 0 % NRG Manual blood lymphocytes/100 leukocytes 12 % NRG Manual eosinophils/100 leukocytes in nose 0 % NRG Manual blood basophils/100 leukocytes 0 % NRG Blood erythrocyte morphology finding identification NORMAL NRG Urine beta human chorionic gonadotropin (hCG) measurement - 07/24/16 10:50 Urine beta human chorionic gonadotropin (hCG) measurement NEGATIVE NEGATIVE Complete urinalysis with reflex to culture - 07/24/16 10:50 Urine color determination YELLOW NRG Urine clarity determination CLEAR NRG Urine pH measurement by test strip 6 5-9 Specific gravity of urine by test strip 1.025 1.016- 1.022 Urine protein assay by test strip, semi-quantitative 2+ NEGATIVE Urine glucose detection by automated test strip NEGATIVE NEGATIVE Erythrocytes detection in urine sediment by light microscopy 3+ NEGATIVE Urine ketones detection by automated test strip 2+ NEGATIVE Urine nitrite detection by test strip NEGATIVE NEGATIVE Urine total bilirubin detection by test strip 1+ NEGATIVE Urine urobilinogen measurement by automated test strip (mass/volume) 4 mg/dL NORMAL Urine leukocyte esterase detection by dipstick 1+ NEGATIVE Automated urine sediment erythrocyte count by microscopy (number/high power field) [HPF] NRG Automated urine sediment leukocyte count by microscopy (number/high power field ) [HPF] NRG Bacteria detection in urine sediment by light microscopy MODERATE NRG Squamous epithelial cells detection in urine sediment by light microscopy 5-10 NRG Crystals detection in urine sediment by light microscopy NONE NRG Casts detection in urine sediment by light microscopy NONE NRG Mucus detection in urine sediment by light microscopy NEGATIVE NRG Complete urinalysis with reflex to culture NO NRG Complete blood count (CBC) with automated white blood cell (WBC) differential - 05/21/17 03:15 Blood leukocytes automated count (number/volume) 11.3 10*3/uL 4.3-11.0 Blood erythrocytes automated count (number/volume) 4.79 10*6/uL 4.35-5.85 Venous blood hemoglobin measurement (mass/volume) 15.0 g/dL 11.5-16.0 Blood hematocrit (volume fraction) 43 % 35-52 Automated erythrocyte mean corpuscular volume 90 [foz_us] 80-99 Automated erythrocyte mean corpuscular hemoglobin (mass per erythrocyte) 31 pg 25-34 Automated erythrocyte mean corpuscular hemoglobin concentration measurement ( mass/volume) 35 g/dL 32-36 Automated erythrocyte distribution width ratio 13.8 % 10.0-14.5 Automated blood platelet count (count/volume) 291 10*3/uL 130-400 Automated blood platelet mean volume measurement 10.3 [foz_us] 7.4-10.4 Automated blood neutrophils/100 leukocytes 73 % 42-75 Automated blood lymphocytes/100 leukocytes 18 % 12-44 Blood monocytes/100 leukocytes 8 % 0-12 Automated blood eosinophils/100 leukocytes 1 % 0-10 Automated blood basophils/100 leukocytes 1 % 0-10 Blood neutrophils automated count (number/volume) 8.2 10*3 1.8-7.8 Blood lymphocytes automated count (number/volume) 2.0 10*3 1.0-4.0 Blood monocytes automated count (number/volume) 0.9 10*3 0.0-1.0 Automated eosinophil count 0.1 10*3/uL 0.0-0.3 Automated blood basophil count (count/volume) 0.1 10*3/uL 0.0-0.1 Comprehensive metabolic panel - 05/21/17 03:15 Serum or plasma sodium measurement (moles/volume) 141 mmol/L 135-145 Serum or plasma potassium measurement (moles/volume) 3.8 mmol/L 3.6-5.0 Serum or plasma chloride measurement (moles/volume) 100 mmol/L 98-107 Carbon dioxide 29 mmol/L 21-32 Serum or plasma anion gap determination (moles/volume) 12 mmol/L 5-14 Serum or plasma urea nitrogen measurement (mass/volume) 8 mg/dL 7-18 Serum or plasma creatinine measurement (mass/volume) 0.77 mg/dL 0.60-1.30 Serum or plasma urea nitrogen/creatinine mass ratio 10 NRG Serum or plasma creatinine measurement with calculation of estimated glomerular filtration rate > NRG Serum or plasma glucose measurement (mass/volume) 135 mg/dL 70-105 Serum or plasma calcium measurement (mass/volume) 9.3 mg/dL 8.5-10.1 Serum or plasma total bilirubin measurement (mass/volume) 0.8 mg/dL 0.1-1.0 Serum or plasma alkaline phosphatase measurement (enzymatic activity/volume) 85 U/L 40-136 Serum or plasma aspartate aminotransferase measurement (enzymatic activity/ volume) 18 U/L 5-34 Serum or plasma alanine aminotransferase measurement (enzymatic activity/volume ) 18 U/L 0-55 Serum or plasma protein measurement (mass/volume) 7.1 g/dL 6.4-8.2 Serum or plasma albumin measurement (mass/volume) 4.3 g/dL 3.2-4.5 Magnesium - 05/21/17 03:15 Magnesium 2.0 mg/dL 1.8-2.4 Lipase - 05/21/17 03:15 Lipase 8 U/L 8-78 Serum or plasma C reactive protein measurement (mass/volume) - 05/21/17 03:15 Serum or plasma C reactive protein measurement (mass/volume) 0.13 mg /dL 0.00-0.50 Urine beta human chorionic gonadotropin (hCG) measurement - 05/21/17 04:30 Urine beta human chorionic gonadotropin (hCG) measurement NEGATIVE NEGATIVE Complete urinalysis with reflex to culture - 05/21/17 04:30 Urine color determination ABDIAS NRG Urine clarity determination SLIGHTLY CLOUDY NRG Urine pH measurement by test strip 8 5-9 Specific gravity of urine by test strip 1.010 1.016- 1.022 Urine protein assay by test strip, semi-quantitative 3+ NEGATIVE Urine glucose detection by automated test strip NEGATIVE NEGATIVE Erythrocytes detection in urine sediment by light microscopy 5+ NEGATIVE Urine ketones detection by automated test strip NEGATIVE NEGATIVE Urine nitrite detection by test strip NEGATIVE NEGATIVE Urine total bilirubin detection by test strip NEGATIVE NEGATIVE Urine urobilinogen measurement by automated test strip (mass/volume) NORMAL NORMAL Urine leukocyte esterase detection by dipstick 1+ NEGATIVE Automated urine sediment erythrocyte count by microscopy (number/high power field) [HPF] NRG Automated urine sediment leukocyte count by microscopy (number/high power field ) RARE NRG Bacteria detection in urine sediment by light microscopy FEW NRG Squamous epithelial cells detection in urine sediment by light microscopy 5-10 NRG Crystals detection in urine sediment by light microscopy NONE NRG Casts detection in urine sediment by light microscopy NONE NRG Mucus detection in urine sediment by light microscopy NEGATIVE NRG Complete urinalysis with reflex to culture YES NRG Urine drug screening test - 05/21/17 04:30 Urine phencyclidine detection by screening method NEGATIVE NEGATIVE Urine benzodiazepines detection by screening method NEGATIVE NEGATIVE Urine cocaine detection NEGATIVE NEGATIVE Urine amphetamines detection by screening method NEGATIVE NEGATIVE Urine methamphetamine detection by screening method NEGATIVE NEGATIVE Urine cannabinoids detection by screening method POSITIVE NEGATIVE Urine opiates detection by screening method NEGATIVE NEGATIVE Urine barbiturates detection NEGATIVE NEGATIVE Screening urine tricyclic antidepressants detection NEGATIVE NEGATIVE Urine methadone detection by screening method NEGATIVE NEGATIVE Urine oxycodone detection NEGATIVE NEGATIVE Urine propoxyphene detection NEGATIVE NEGATIVE Bacterial urine culture - 05/21/17 04:30 Encounters ACCT No. Visit Date/Time Discharge Status Pt. Type Provider Facility Loc./Unit Complaint [id number] 06/09/2014 08:46:00 06/09/2014 23:59:59 CLS Outpatient JOSE LYNNE APRN [id number] 06/07/2014 15:23:00 06/07/2014 23:59:59 CLS Outpatient JOSE LYNNE APRN [id number] 05/30/2014 10:29:00 05/30/2014 23:59:59 CLS Outpatient AKUA MATOS APRN [id number] 03/08/2012 14:04:00 03/08/2012 23:59:59 CLS Outpatient ABBI PHILLIPS GUEVARA Edyta [id number] 07/24/2016 07:03:00 07/24/2016 11:51:00 DIS Emergency GABRIEL SYLVESTER MD [facility] ER NAUSEA AND VOMITING [id number] 03/16/2015 10:25:00 03/16/2015 11:25:00 DIS Emergency GABRIEL SYLVESTER MD [facility] ER VOMITING [id number] 06/13/2014 11:46:00 06/13/2014 23:59:59 CLS Outpatient 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 [facility] RAD ABDOMINAL PAIN EPIGASTRIC VOMITING [id number] 01/26/2014 11:20:00 01/26/2014 23:59:59 CLS Outpatient KATHY SORIA DO [facility] RAD VOMITTING, CONSTIPATION [id number] 09/19/2013 23:22:00 09/20/2013 00:58:00 DIS Emergency CHARLES CERVANTES MD [facility] ER N/V [id number] 05/21/2017 03:27:00 Document Registration [id number] 01/26/2014 11:20:00 Document Registration [id number] 01/26/2014 11:20:00 Document Registration [id number] 12/23/2011 11:28:00 Document Registration [id number] 12/08/2011 11:21:00 Document Registration [id number] 02/08/2011 04:20:00 Document Registration [id number] 01/03/2011 10:57:00 Document Registration [id number] 01/01/2011 07:34:00 Document Registration [id number] 12/09/2010 15:18:00 Document Registration [id number] 11/05/2010 08:12:00 Document Registration [id number] 10/30/2010 11:42:00 Document Registration [id number] 09/25/2010 11:04:00 Document Registration [id number] 09/24/2010 13:07:00 Document Registration [id number] 09/10/2010 23:40:00 Document Registration [id number] 08/23/2010 13:07:00 Document Registration [id number] 08/09/2010 21:35:00 Document Registration [id number] 08/05/2010 18:20:00 Document Registration [id number] 08/04/2010 09:34:00 Document Registration [id number] 07/24/2010 13:20:00 Document Registration [id number] 07/19/2010 11:46:00 Document Registration [id number] 12/01/2009 08:10:00 Document Registration [id number] 11/29/2009 18:26:00 Document Registration [id number] 11/28/2009 06:25:00 Document Registration [id number] 11/20/2009 11:01:00 Document Registration [id number] 06/28/2009 11:39:00 Document Registration [id number] 05/12/2017 14:00:00 05/12/2017 23:59:59 [facility] HEATHER RUEDA [facility]
[2017-05-25] MEDS ORDERED: LACTATED RINGERS 1,000 ML IV ONE (11:46)
[2017-05-25] MEDS ORDERED: diphenhydrAMINE 50 MG/ML INJ (BENADRYL) IV STA (11:46)
[2017-05-25] MEDS ORDERED: PANTOPRAZOLE 40 MG/10 ML (PROTONIX) VIAL IV STA (11:46)
[2017-05-25] MEDS ORDERED: PROMETHAZINE INJ 25 MG/ML (PHENERGAN) AMP IVP STA (11:46)
[2017-05-25 11:56] LABS: BASOPHILS % (AUTO) 0 % (0-10); EOSINOPHILS % (AUTO) 0 % (0-10); HEMATOCRIT 46 % (35-52); HEMOGLOBIN 15.8 G/DL (11.5-16.0); LYMPHOCYTES % (AUTO) 9 % (12-44); MEAN CORPUSCULAR HEMOGLOBIN 31 PG (25-34); MEAN CORPUSCULAR HGB CONC 35 G/DL (32-36); MEAN CORPUSCULAR VOLUME 90 FL (80-99); MEAN PLATELET VOLUME 10.6 FL (7.4-10.4); MONOCYTES # (AUTO) 0.4 X 10^3 (0.0-1.0); MONOCYTES % (AUTO) 3 % (0-12); NEUTROPHILS # (AUTO) 9.9 X 10^3 (1.8-7.8); NEUTROPHILS % (AUTO) 88 % (42-75); PLATELET COUNT 343 10^3/uL (130-400); RED BLOOD COUNT 5.08 10^6/uL (4.35-5.85); RED CELL DISTRIBUTION WIDTH 13.6 % (10.0-14.5); WHITE BLOOD COUNT 11.3 10^3/uL (4.3-11.0)
[2017-05-25] MEDS ORDERED: ONDANSETRON 4 MG/2 ML (SDV) Z0FRAN IVP ONE (12:00)
[2017-05-25 12:12] LABS: ALANINE AMINOTRANSFERASE 54 U/L (0-55); ALBUMIN 4.9 GM/DL (3.2-4.5); ALKALINE PHOSPHATASE 91 U/L (40-136); AMYLASE 31 U/L (25-125); BILIRUBIN,TOTAL 0.9 MG/DL (0.1-1.0); BUN/CREATININE RATIO 11; CALCIUM 10.6 MG/DL (8.5-10.1); CARBON DIOXIDE 32 MMOL/L (21-32); CHLORIDE 97 MMOL/L (98-107); CREATININE SERUM 0.96 MG/DL (0.60-1.30); GFR ESTIMATED > 60; GLUCOSE 147 MG/DL (70-105); LIPASE 7 U/L (8-78); MAGNESIUM 1.8 MG/DL (1.8-2.4); SODIUM 140 MMOL/L (135-145); TOTAL PROTEIN 8.2 GM/DL (6.4-8.2)
[2017-05-25 12:28] LABS: BAND NEUTROPHILS 0 %; BASOPHILS % (MANUAL) 0 %; EOSINOPHILS % (MANUAL) 0 %; LYMPHOCYTES % (MANUAL) 9 %; MONOCYTES % (MANUAL) 5 %; NEUTROPHILS % (MANUAL) 86 %
[2017-05-25 12:29] LABS: RBC MORPH NORMAL
--- NOTE | 2017-05-25 12:31 | ED GI ---
General Chief Complaint: Abdominal/GI Problems Stated Complaint: VOMITING Nursing Triage Note: pt reports n/v since thursday. reports she was admitted to the hospital and release thursday. reports it got worse thursday and she started vomiting again. Sepsis Screen: No Definite Risk Source of Information: Patient, Old Records Exam Limitations: No Limitations History of Present Illness Date Seen by Provider: May 25, 2017 Time Seen by Provider: 11:31 Initial Comments PT ARRIVES VIA POV FROM HOME C/O NAUSEA AND VOMITING SINCE MIDNIGHT LAST NIGHT HAS VOMITED UNKNOWN NUMBER OF TIMES NO DIARRHEA--HAD NORMAL BM YESTERDAY NO ABDOMINAL PAIN NO FEVER PT CANNOT STATE WHEN SHE LAST VOIDED NO SICK CONTACTS OR SUSPICIOUS FOODS PT ATE [employer] YESTERDAY, AND LAST FOOD INTAKE WAS AT 1900 LAST PM- -HAM, [place]. PT WAS ADMITTED 05/21-05/23/17 FOR THIS SAME PROBLEM-HAD BEEN GOING ON FOR A FEW DAYS AT THAT TIME. CT OF ABDOMEN WAS ESSENTIALLY NORMAL/NO ACUTE PROCESS. PT STATES SHE HAS GERD, AND HAS BEEN OUT OF HER NEXIUM FOR OVER A WEEK, AND BECAUSE SHE HAS NOT BEEN SEEN IN A LONG TIME, THEY WOULD NOT REFILL IT UNTIL SHE WAS SEEN--LATER STATES SHE WAS GIVEN RX FOR NEXIUM AT DISMISSAL, BUT DID NOT GET IT FILLED "BECAUSE I HAVEN'T SEEN MY DR YET"--DOES NOT HAVE AN APPOINTMENT MADE FOR FOLLOW UP PT LATER STATES SHE WAS NOT DISMISSED WITH ANY PRESCRIPTIONS--STATES THEY TOLD HER TO TAKE WHAT SHE HAD AT HOME--NEXIUM AND RISPERDAL PT DOES USE MARIJUANA ON FREQUENT BASIS PCP: [facility], [employer] MARYBETH Garcia Allergies and Home Medications Allergies Coded Allergies: Penicillins (Verified Allergy, Unknown, 05/25/17) Home Medications Desvenlafaxine Succinate 100 Mg Tab.er.24h, 100 MG PO DAILY, (Reported) Esomeprazole Magnesium 40 Mg Cap, 40 MG PO DAILY, (Reported) Ondansetron 4 Mg Tab.rapdis, 4-8 MG PO Q4H Prescribed by: JERAD COSBY on 05/25/17 1253 Promethazine HCl 25 Mg Supp.rect, 25 MG RC Q4H Prescribed by: JERAD COSBY on 05/25/17 1253 Risperidone 2 Mg Tablet, 2 MG PO HS, (Reported) Scopolamine 1 Each Patch.td72, 1 EACH TD Q72 HOURS Prescribed by: JERAD COSBY on 05/25/17 1253 Trazodone HCl 50 Mg Tablet, 50 MG PO HS, (Reported) Patient Home Medication List Home Medication List Reviewed: Yes Review of Systems Constitutional: no symptoms reported, No chills, No diaphoresis, No dizziness, No fever, No malaise, No weakness EENTM: No Symptoms Reported Respiratory: No Symptoms Reported Cardiovascular: No Symptoms Reported Gastrointestinal: See HPI, Denies Abdominal Pain, Denies Constipated, Denies Diarrhea, Nausea, Vomiting Genitourinary: See HPI Musculoskeletal: no symptoms reported Skin: no symptoms reported Psychiatric/Neurological: No Symptoms Reported Endocrine: No Symptoms Reported Hematologic/Lymphatic: No Symptoms Reported Past Tpeezdo-Ifpfhu-Jirsfv Hx Patient Social History Alcohol Use: Denies Use Recreational Drug Use: Yes (MARIJUANA) Drug of Choice: MARIJUANA Smoking Status: Current Everyday Smoker (1 PPD) Type Used: Cigarettes 2nd Hand Smoke Exposure: Yes Recent Foreign Travel: No Contact w/Someone Who Travel: No Recent Infectious Disease Expo: No Recent Hopitalizations: No Physical Abuse: No Sexual Abuse: No Mistreated: No Fear: No Immunizations Up To Date Date of Influenza Vaccine: Dec 12, 2010 Seasonal Allergies Seasonal Allergies: No Surgeries History of Surgeries: Yes (TENDONS STRETCHED OUT--LEGS AND ARMS) Surgeries: Gallbladder Respiratory History of Respiratory Disorde: No Cardiovascular History of Cardiac Disorders: No Neurological History of Neurological Disord: Yes (Stroke at 18 months old; 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) Neurological Disorders: Stroke Reproductive System Hx Reproductive Disorders: No Sexually Transmitted Disease: No HIV/AIDS: No Female Reproductive Disorders: Denies Genitourinary History of Genitourinary Disor: Yes Genitourinary Disorders: UTI-Chronic Gastrointestinal History of Gastrointestinal Di: Yes Gastrointestinal Disorders: Gastroesophageal Reflux Musculoskeletal History of Musculoskeletal Dis: Yes (RIGHT SIDE contracture.) Musculoskeletal Disorders: Contracture Endocrine History of Endocrine Disorders: No HEENT History of HEENT Disorders: No Cancer History of Cancer: No Psychosocial History of Psychiatric Problem: Yes (Bipolar ) Behavioral Health Disorders: Anxiety, Bipolar, Depression Suicide Risk Score: 0 Integumentary History of Skin or Integumenta: No Blood Transfusions History of Blood Disorders: No Adverse Reaction to a Blood Tr: No Family Medical History Significant Family History: No Pertinent Family Hx Family Medial History: Alcoholism Arthritis Cardiovascular disease Dementia Diabetes mellitus Drug abuse Hypertension Myocardial infarction Psychosocial problem Respiratory disorder Seizure disorder Physical Exam Vital Signs VS - Last 72 Hours, by Label 05/25/17 11:50 Temp 95.9 Pulse 77 Resp 20 B/P (MAP) 146/117 (127) Pulse Ox 98 Capillary Refill : Less Than 3 Seconds General Appearance: other (DRAMATIC, SOMEWHAT HOSTILE, SPEECH SLIGHTLY SLOW AND THICK-TONGUED. 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 WALKS WITH SLIGHT LIMP ON RIGHT. ), alert, oriented x 3 Skin: normal color, warm/dry Progress/Results/Core Measures Results/Orders Lab Results Laboratory Tests Test 05/25/17 11:44 05/25/17 12:47 Range/Units White Blood Count 11.3 H 4.3-11.0 10^3/uL Red Blood Count 5.08 4.35-5.85 10^6/uL Hemoglobin 15.8 11.5-16.0 G/DL Hematocrit 46 35-52 % Mean Corpuscular Volume 90 80-99 FL Mean Corpuscular Hemoglobin 31 25-34 PG Mean Corpuscular Hemoglobin Concent 35 32-36 G/DL Red Cell Distribution Width 13.6 10.0-14.5 % Platelet Count 343 130-400 10^3/uL Mean Platelet Volume 10.6 H 7.4-10.4 FL Neutrophils (%) (Auto) 88 H 42-75 % Lymphocytes (%) (Auto) 9 L 12-44 % Monocytes (%) (Auto) 3 0-12 % Eosinophils (%) (Auto) 0 0-10 % Basophils (%) (Auto) 0 0-10 % Neutrophils # (Auto) 9.9 H 1.8-7.8 X 10^3 Lymphocytes # (Auto) 1.0 1.0-4.0 X 10^3 Monocytes # (Auto) 0.4 0.0-1.0 X 10^3 Eosinophils # (Auto) 0.0 0.0-0.3 10^3/uL Basophils # (Auto) 0.0 0.0-0.1 10^3/uL Neutrophils % (Manual) 86 % Lymphocytes % (Manual) 9 % Monocytes % (Manual) 5 % Eosinophils % (Manual) 0 % Basophils % (Manual) 0 % Band Neutrophils 0 % Blood Morphology Comment NORMAL Sodium Level 140 135-145 MMOL/L Potassium Level 4.0 3.6-5.0 MMOL/L Chloride Level 97 L 98-107 MMOL/L Carbon Dioxide Level 32 21-32 MMOL/L Anion Gap 11 5-14 MMOL/L Blood Urea Nitrogen 11 7-18 MG/DL Creatinine 0.96 0.60-1.30 MG/DL Estimat Glomerular Filtration Rate > 60 BUN/Creatinine Ratio 11 Glucose Level 147 H 70-105 MG/DL Calcium Level 10.6 H 8.5-10.1 MG/DL Magnesium Level 1.8 1.8-2.4 MG/DL Total Bilirubin 0.9 0.1-1.0 MG/DL Aspartate Amino Transf (AST/SGOT) 19 5-34 U/L Alanine Aminotransferase (ALT/SGPT) 54 0-55 U/L Alkaline Phosphatase 91 40-136 U/L Total Protein 8.2 6.4-8.2 GM/DL Albumin 4.9 H 3.2-4.5 GM/DL Amylase Level 31 25-125 U/L Lipase 7 L 8-78 U/L Serum Test, Qualitative NEGATIVE NEGATIVE Serum Alcohol < 10 <10 MG/DL Urine Color YELLOW Urine Clarity VERY CLOUDY H Urine pH 8 5-9 Urine Specific [place] 1.010 L 1.016-1.022 Urine Protein 2+ H NEGATIVE Urine Glucose (UA) NEGATIVE NEGATIVE Urine Ketones 1+ H NEGATIVE Urine Nitrite NEGATIVE NEGATIVE Urine Bilirubin NEGATIVE NEGATIVE Urine Urobilinogen NORMAL NORMAL MG/DL Urine Leukocyte Esterase 1+ H NEGATIVE Urine RBC (Auto) 3+ H NEGATIVE Urine RBC RARE /HPF Urine WBC NONE /HPF Urine Squamous Epithelial Cells 5-10 /HPF Urine Crystals NONE /LPF Urine Amorphous Sediment LARGE TIFFANY PHOSPHATE H /LPF Urine Bacteria NEGATIVE /HPF Urine Casts NONE /LPF Urine Mucus NEGATIVE /LPF Urine Culture Indicated NO Urine Opiates Screen NEGATIVE NEGATIVE Urine Oxycodone Screen NEGATIVE NEGATIVE Urine Methadone Screen NEGATIVE NEGATIVE Urine Propoxyphene Screen NEGATIVE NEGATIVE Urine Barbiturates Screen NEGATIVE NEGATIVE Ur Tricyclic Antidepressants Screen NEGATIVE NEGATIVE Urine Phencyclidine Screen NEGATIVE NEGATIVE Urine Amphetamines Screen NEGATIVE NEGATIVE Urine Methamphetamines Screen NEGATIVE NEGATIVE Urine Benzodiazepines Screen POSITIVE H NEGATIVE Urine Cocaine Screen NEGATIVE NEGATIVE Urine Cannabinoids Screen NEGATIVE NEGATIVE My Orders Orders - JERAD COSBY DO Saline Lock/Iv-Start (05/25/17 11:46) Alcohol (05/25/17 11:46) Amylase (05/25/17 11:46) Cbc With Automated Diff (05/25/17 11:46) Comprehensive Metabolic Panel (05/25/17 11:46) Drug Screen Stat (Urine) (05/25/17 11:46) Hcg,Qualitative Serum (05/25/17 11:46) Lipase (05/25/17 11:46) Magnesium (05/25/17 11:46) Ua Culture If Indicated (05/25/17 11:46) Saline Lock/Iv-Start (05/25/17 11:46) Lactated Ringers (Lr 1000 Ml Iv Solution (05/25/17 11:46) Promethazine Injection (Phenergan Injec (05/25/17 11:46) Ondansetron Injection (Zofran Injectio (05/25/17 12:00) Diphenhydramine Injection (Benadryl Inje (05/25/17 11:46) Pantoprazole Injection (Protonix Injecti (05/25/17 11:46) Manual Differential (05/25/17 11:44) Scopolamine Patch (Transderm-Scop Patch) (05/25/17 13:00) Medications Given in ED Current Medications Medications Dose Ordered Sig/[place] Route Start Time Stop Time Status Last Admin Dose Admin Lactated Ringer's 1,000 ml @ 0 mls/hr Q0M ONCE IV 05/25/17 11:46 05/25/17 11:52 DC 05/25/17 12:09 0 MLS/HR Ondansetron HCl 8 mg ONCE ONCE IVP 05/25/17 12:00 05/25/17 12:01 DC 05/25/17 12:08 8 MG Scopolamine 1.5 mg ONCE ONCE TD 05/25/17 13:00 05/25/17 13:01 DC 05/25/17 13:06 1.5 MG Vital Signs/I&O Vital Sign - Last 12Hours 05/25/17 11:50 Temp 95.9 Pulse 77 Resp 20 B/P (MAP) 146/117 (127) Pulse Ox 98 Blood Pressure Mean: 127 Progress Note : Progress Note NAUSEA AND VOMITING RESOLVED WITH PHENERGAN, BENADRYL. ZOFRAN AND PROTONIX PT ABLE TO VOID AFTER 1 LITER OF FLUIDS PT FEELS COMFORTABLE GOING HOME Departure Impression Impression: Primary Impression: Intractable nausea and vomiting Disposition: HOME, SELF-CARE Condition: Improved Departure-Patient Inst. Referrals: [facility] (PCP) Primary Care Physician HEATHER RUEDA APRN (Family) Primary Care Physician Patient Instructions: Nausea and Vomiting, Adult (DC) Add. Discharge Instructions: CLEAR LIQUIDS TODAY--WATER, BROTH, JELLO, GATORADE--SIPS AT A TIME TOMORROW IF YOU ARE BETTER, ADD BRATS DIET TO CLEAR LIQUIDS--BANANAS, RICE, APPLESAUCE, TOAST, SALTINES FOLLOW UP WITH [facility] IN 1-2 DAYS FOR FURTHER CARE All discharge instructions reviewed with patient and/or family. Voiced understanding. Scripts Promethazine HCl (Phenergan) 25 Mg Supp.rect 25 MG RC Q4H for Nausea/Vomiting, #10 SUPP.RECT Prov: JERAD COSBY DO 05/25/17 Ondansetron (Zofran Odt) 4 Mg Tab.rapdis 4-8 MG PO Q4H for Nausea/Vomiting, #15 TAB Prov: JERAD COSBY DO 05/25/17 Scopolamine (Transderm-Scop) 1 Each Patch.td72 1 EACH TD Q72 HOURS for Dizziness, #3 PATCH Prov: JERAD COSBY DO 05/25/17 JERAD COSBY DO May 25, 2017 12:31
[2017-05-25] MEDS ORDERED: SCOP1PAT11 TD (12:53)
[2017-05-25] MEDS ORDERED: PROM25SU43 RC (12:53)
[2017-05-25] MEDS ORDERED: ONDA4TAB8 PO (12:53)
[2017-05-25 12:55] LABS: BILIRUBIN,URINE NEGATIVE (NEGATIVE); CLARITY,URINE VERY CLOUDY; COLOR,URINE YELLOW; GLUCOSE, URINE (UA) NEGATIVE (NEGATIVE); KETONES,URINE 1+ (NEGATIVE); LEUKOCYTE ESTERASE ,URINE 1+ (NEGATIVE); NITRITE,URINE NEGATIVE (NEGATIVE); PH,URINE 8 (5-9); PROTEIN,URINE 2+ (NEGATIVE); UROBILINOGEN,URINE NORMAL (NORMAL)
[2017-05-25] MEDS ORDERED: SCOPOLAMINE 1.5 MG (TRANSDERM-SCOP) PATCH TD ONE (13:00)
[2017-05-25 13:06] LABS: AMPHETAMINE SCREEN, URINE NEGATIVE (NEGATIVE); BARBITURATE SCREEN URINE NEGATIVE (NEGATIVE); BENZODIAZEPINES SCREEN URINE POSITIVE (NEGATIVE); CANNABINOID SCREEN, URINE NEGATIVE (NEGATIVE); COCAINE SCREEN URINE NEGATIVE (NEGATIVE); METHADONE STAT NEGATIVE (NEGATIVE); METHAMPHETAMINE SCREEN URINE S NEGATIVE (NEGATIVE); OPIATE SCREEN URINE NEGATIVE (NEGATIVE); OXYCODONE STAT NEGATIVE (NEGATIVE); PROPOXYPHENE STAT NEGATIVE (NEGATIVE); TRICYCLIC ANTIDEPRESSANTS SCRE NEGATIVE (NEGATIVE)
[2017-05-25 13:09] VITALS: BP 132/98
[2017-05-25 13:09] LABS: RBC,URINE RARE /HPF
[2017-05-25 13:10] LABS: AMORPHOUS SEDIMENT,UR LARGE AMOR PHOSPHATE /LPF; BACTERIA,URINE NEGATIVE /HPF
== END 2017-05-25 13:09 | disposition home or self-care (01) ==
LOC: EDUNIT# 11:24 → ER 11:26
DX: R11.2 Nausea with vomiting, unspecified (principal); F41.9 Anxiety disorder, unspecified; F31.9 Bipolar disorder, unspecified; K21.9 Gastro-esophageal reflux disease without esophagitis; F13.90 Sedative, hypnotic, or anxiolytic use, unspecified, uncomplicated; F12.90 Cannabis use, unspecified, uncomplicated; F17.210 Nicotine dependence, cigarettes, uncomplicated; Z87.440 Personal history of urinary (tract) infections; Z86.73 Personal history of transient ischemic attack (TIA), and cerebral infarction without residual deficits; Z88.0 Allergy status to penicillin
CPT/HCPCS: 36415; 80053; 80306; 80320; 81000; 82150; 83690; 83735; 84703; 85007; 85027; 96361; 96374; 96375

== ENCOUNTER → 2019-07-11 | Outpatient (CLI) | payer MEDICARE, MEDICAID ==
[~2019-07-11] MED LIST changes: +ONDA4TAB8 PO; +PROM25SU43 RC; +SCOP1PAT11 TD; -TRAZ-28 PO; +TRZ50T PO
--- NOTE | 2019-07-11 10:35 | Diagnostic Imaging Report ---
INDICATION: Palpable lump in the posterior neck TECHNIQUE: Multiple real-time grayscale images were obtained over the neck in various projections. FINDINGS: There is no evidence of discrete solid or cystic mass in the left neck. IMPRESSION: Unremarkable limited ultrasound of the neck Dictated by: Dictated on workstation # [id number]
== END ==
LOC: RAD 09:17
PROVIDERS: ATTEND Nurse Practitioner Community Health
DX: L02.11 Cutaneous abscess of neck (principal)
CPT/HCPCS: 76536

== ENCOUNTER → 2019-08-15 | Outpatient (CLI) | payer MEDICARE, MEDICAID ==
--- NOTE | 2019-08-15 13:00 | Diagnostic Imaging Report ---
PROCEDURE: MR imaging cervical spine without contrast. TECHNIQUE: Multiplanar, multisequence MR imaging of the cervical spine was performed without contrast. INDICATION: Sharp neck pain. COMPARISON: No prior studies are available for comparison. FINDINGS: Curvature and alignment of the cervical spine is normal. Vertebral body marrow signal is normal. No geographic marrow lesion is detected. There is fairly normal height to the cervical intervertebral discs. No focal disc protrusion is seen. No central canal or neuroforaminal stenosis is identified. There is mild disc desiccation at C3-C4, C4-C5, and C5-C6 levels. Cervical cord shows normal homogeneous signal intensity and normal morphology. Craniocervical junction is unremarkable. Paraspinous tissues are unremarkable. IMPRESSION: Essentially unremarkable MRI of the cervical spine. No focal disc protrusion, central canal or neuroforaminal stenosis is identified. Dictated by: Dictated on workstation # [id number]
== END ==
LOC: RAD 12:02
PROVIDERS: ATTEND Nurse Practitioner Community Health
DX: M54.12 Radiculopathy, cervical region (principal)
CPT/HCPCS: 72141

== ENCOUNTER → 2023-01-07 | Outpatient (CLI) | payer OTHER, MEDICAID ==
[~2023-01-07] MED LIST changes: -RISP2TAB3 PO; +RISP2TAB84 PO; +SCOP1PAT10 TD; -SCOP1PAT11 TD
--- NOTE | 2023-01-08 09:33 | Diagnostic Imaging Report ---
Indication: Routine screening. No prior mammograms are available for comparison. This a baseline study. 2-D and 3-D bilateral screening mammography was performed with CAD. The current study was also evaluated with a Computer Aided Detection (CAD) system. Scattered fibroglandular densities are identified bilaterally. There are scattered benign calcifications in both breasts. No mass or malignant-appearing microcalcifications are identified. Axillae are unremarkable. IMPRESSION: BI-RADS Category 2 No mammographic features suspicious for malignancy are identified. ACR BI-RADS Category 2: Benign findings. Result letter will be mailed to the patient. Note: At least 10% of breast cancer is not imaged by mammography. Dictated by: Dictated on workstation # [id number]
== END ==
LOC: RAD 14:51
PROVIDERS: ATTEND Nurse Practitioner Family
DX: Z12.31 Encounter for screening mammogram for malignant neoplasm of breast (principal)
CPT/HCPCS: 77063; 77067